=== PATIENT | female | born 1985 | race Two or more races ===

== ENCOUNTER 2024-08-14 12:13 | Observation (INO) | payer OTHER ==
[~2024-08-14] VITALS: Ht 154.9 cm; Wt 96.4 kg
[~2024-08-14 12:13] MED LIST: CVS1CAP2 PO; FLAX1CAP5 PO; IBUP-1022 PO; OXYC1TAB23 PO
[2024-08-14 13:19] LABS: BASO # 0.1 10^3/uL (0.0-0.2); BASO % 0.7 % (0.0-1.0); EOS # 0.3 10^3/uL (0.0-0.5); EOS % 2.8 % (0.0-3.0); HEMOGLOBIN 9.2 g/dl (12.0-15.5); LYMPH # 2.3 10^3/uL (1.5-5.0); LYMPH % 18.4 % (24.0-44.0); MEAN CORPUSCULAR HEMOGLOBIN 20.7 pg (27.0-33.0); MEAN CORPUSCULAR HGB CONC 29.7 g/dl (32.0-36.5); MEAN CORPUSCULAR VOLUME 69.8 fl (80.0-96.0); MONO # 0.8 10^3/uL (0.0-0.8); MONO % 6.7 % (2.0-8.0); NEUTROPHILS # 8.7 10^3/uL (1.5-8.5); NEUTROPHILS % 71.2 % (36.0-66.0); PLATELET COUNT, AUTOMATED 350 10^3/uL (150-450); RED BLOOD COUNT 4.44 10^6/uL (4.00-5.40); WHITE BLOOD COUNT 12.2 10^3/uL (4.0-10.0)
[2024-08-14 13:38] LABS: APPEARANCE, URINE CLEAR (CLEAR); BACTERIA, URINE AUTO NEGATIVE (NEGATIVE); BILIRUBIN, URINE AUTO NEGATIVE (NEGATIVE); BLOOD, URINE BLOOD 2+ (NEGATIVE); COLOR, URINE STRAW (YELLOW); GLUCOSE, URINE (UA) AUTO NEGATIVE (NEGATIVE); KETONE, URINE AUTO NEGATIVE (NEGATIVE); LEUKOCYTE ESTERASE, URINE AUTO NEGATIVE (NEGATIVE); MUCUS, URINE SMALL (NEGATIVE); NITRITE, URINE AUTO NEGATIVE (NEGATIVE); PROTEIN, URINE AUTO NEGATIVE (NEGATIVE); RBC, URINE AUTO 3 /HPF (0-3); SPECIFIC GRAVITY URINE AUTO 1.008 (1.002-1.035); SQUAMOUS EPITHELIAL CELL UR AU 2 /HPF (0-6); UROBILINOGEN, URINE AUTO 0.2 mg/dL (0.0-2.0); WBC, URINE AUTO 2 /HPF (0-3)
[2024-08-14 14:00] LABS: ALKALINE PHOSPHATASE 72 U/L (46-116); ALT/SGPT 25 U/L (7.0-40); AST/SGOT 14 U/L (<34); BILIRUBIN,DIRECT 0.1 MG/DL (<0.4); BILIRUBIN,TOTAL 0.4 MG/DL (0.3-1.2); BLOOD UREA NITROGEN 12 MG/DL (9-23); CALCIUM LEVEL 8.9 MG/DL (8.5-10.1); CARBON DIOXIDE LEVEL 26 MMOL/L (20-31); CHLORIDE LEVEL 109 MMOL/L (98-107); CREATININE FOR GFR 0.76 MG/DL (0.55-1.30); GLOMERULAR FILTRATION RATE > 60.0 (>58); GLUCOSE, FASTING 85 MG/DL (60-100); POTASSIUM SERUM 3.8 MMOL/L (3.5-5.1); SODIUM LEVEL 139 MMOL/L (136-145)
[2024-08-14] MEDS: FUROSEMIDE 20MG/2ML VIAL IV ONE ×2 (15:07→17:22)
[2024-08-14] MEDS: PERCOCET 5MG/325MG TAB PO ONE (17:57)
[2024-08-14] MEDS: CARVedilol 12.5 MG TAB PO ONE (19:14)
[2024-08-14] MEDS ORDERED: CHLO125TA PO (20:35)
[2024-08-14] MEDS ORDERED: LISI20TA33 PO (20:35)
[2024-08-14] MEDS ORDERED: CORE12.5 PO (20:35)
[2024-08-14] MEDS ORDERED: PERCOCET PO (23:10)
[2024-08-14] MEDS ORDERED: HOME MED LIST COMPLETE! XX SCH (23:10)
[2024-08-14] MEDS ORDERED: AMOX875T2 PO (23:10)
[2024-08-14] MEDS ORDERED: PERCOCET 5MG/325MG TAB PO PRN (23:25)
[2024-08-15] VITALS (7 sets, daily range): BP systolic 115–143; BP diastolic 60–82; TEMP 98.3–98.6; O2SAT 95–99
[2024-08-15 05:42] LABS: HEMATOCRIT 30.4 % (36.0-47.0); MEAN CORPUSCULAR HEMOGLOBIN 20.3 pg (27.0-33.0); MEAN CORPUSCULAR HGB CONC 29.6 g/dl (32.0-36.5); MEAN CORPUSCULAR VOLUME 68.6 fl (80.0-96.0); PLATELET COUNT, AUTOMATED 334 10^3/uL (150-450); RED BLOOD COUNT 4.43 10^6/uL (4.00-5.40); WHITE BLOOD COUNT 12.5 10^3/uL (4.0-10.0)
[2024-08-15 06:07] LABS: IRON (FE) 13 UG/DL (50-170)
[2024-08-15 06:10] LABS: ALBUMIN 2.7 G/DL (3.2-5.2); ALKALINE PHOSPHATASE 69 U/L (46-116); ALT/SGPT 19 U/L (7.0-40); AST/SGOT < 8 U/L (<34); BILIRUBIN,TOTAL 0.5 MG/DL (0.3-1.2); BLOOD UREA NITROGEN 11 MG/DL (9-23); CALCIUM LEVEL 9.6 MG/DL (8.5-10.1); CARBON DIOXIDE LEVEL 29 MMOL/L (20-31); CHLORIDE LEVEL 106 MMOL/L (98-107); CREATININE FOR GFR 0.88 MG/DL (0.55-1.30); GLOMERULAR FILTRATION RATE > 60.0 (>58); GLUCOSE, FASTING 90 MG/DL (60-100); POTASSIUM SERUM 3.7 MMOL/L (3.5-5.1); SODIUM LEVEL 140 MMOL/L (136-145); TOTAL PROTEIN 6.3 G/DL (5.7-8.2)
[2024-08-15] MEDS: FERRIC CARBOXYMALTOSE INJ 750 MG, VIAL MATE ADAPTER 1 EACH in NS 100 ML IV ONE (08:43)
[2024-08-15] MEDS: ENOXAPARIN 40MG/0.4ML SYRINGE (J1650 PER 10MG) SC SCH (08:47)
[2024-08-15] MEDS: DOCUSATE SODIUM 100MG CAPSULE PO SCH (08:47)
[2024-08-15] MEDS ORDERED: lisinopriL 40MG TAB PO SCH (09:00)
[2024-08-15] MEDS ORDERED: LISI20TA33 PO (09:59)
[2024-08-15] MEDS ORDERED: MIRA3350 PO (11:52)
[2024-08-15] MEDS ORDERED: FERR325T3 PO (11:52)
[2024-08-15] MEDS: ACETAMINOPHEN 325 MG TAB PO PRN (12:10)
== END 2024-08-15 13:34 | disposition home or self-care (01) ==
LOC: M ED 12:13 → MERGE 12:14 → M ED INP 12:14 → M PCU 08-15 00:53
PROVIDERS: ADMIT Student in an Organized Health Care Education/Training Program; ATTEND Student in an Organized Health Care Education/Training Program
DX: I16.0 Hypertensive urgency (principal); R55 Syncope and collapse; D53.9 Nutritional anemia, unspecified; D50.9 Iron deficiency anemia, unspecified; R42 Dizziness and giddiness; Z79.899 Other long term (current) drug therapy
CPT/HCPCS: 36415; 76775; 80053; 81001; 82248; 82728; 83540; 84466; 85025; 85027; 93005; 93975; 96374; 96375; 96376; 97161; 99285; J1439; J1940

== ENCOUNTER → 2025-01-09 | Outpatient (CLI) | payer OTHER ==
[~2025-01-09] MED LIST changes: +AMOX875T2 PO; +CHLO125TA PO; +CORE12.5 PO; +FERR325T3 PO; +LISI20TA33 PO; +MIRA3350 PO; +PERCOCET PO; +PROHANCE 279.3MG/ML 15ML VIAL ONE; +PROHANCE 279.3MG/ML 5ML VIAL ONE
== END ==
LOC: M PLAIMG 12:29
PROVIDERS: ATTEND Nurse Practitioner Family
DX: Z91.89 Other specified personal risk factors, not elsewhere classified (principal); R92.30 Dense breasts, unspecified; Z80.3 Family history of malignant neoplasm of breast
CPT/HCPCS: 77049; A9576